=== PATIENT | female | born 1995 | race African-American/Black ===

== ENCOUNTER 2020-10-19 08:37 | Emergency (ER) | payer BC ==
[2020-10-19] MEDS ORDERED: Sodium Chloride 0.9% 1,000 ML IV ONE (08:59)
[2020-10-19] MEDS ORDERED: Ondansetron 4 MG/2 ML SDV IVPUSH ONE (08:59)
--- NOTE | 2020-10-19 09:25 | EDM.PDOC ---
ED HPI GENERAL MEDICAL PROBLEM - General Chief Complaint: Gastrointestinal Problem Stated Complaint: 8 WEEKS PG/VOMITING Time Seen by Provider: 10/19/20 08:49 Source of Information: Reports: Patient History Limitations: Reports: No Limitations - History of Present Illness INITIAL COMMENTS - FREE TEXT/NARRATIVE: 25-year-old female presents the emergency department today with complaints of nausea and vomiting. The patient states that she is 8 weeks however she does not know the exact date her last menstrual period. She is a 3 para 1. States that her last resulted in a miscarriage due to group B strep. She is from [facility] so her OB is located there. She is just visiting and plans on returning this week. She states she has had some issues with nausea and vomiting during this however had been doing fairly well. She states she started having nausea and vomiting 2 days ago and has really not been able to keep much of anything down. States she takes sips of water and even that tends to come back up. She denies any fever, chills, abdominal pain or diarrhea. She denies any urinary symptoms, however she states she was being treated for UTI and was on antibiotics however she has not been able to keep those down over the past 2 days due to the nausea and vomiting. Patient states she is otherwise healthy. 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 ED EXAM, GI/ABD - Physical Exam Exam: See Below Exam Limited By: No Limitations General Appearance: Alert, WD/WN, No Apparent Distress Ears: Normal External Exam, Hearing Grossly Normal Nose: Normal Inspection Throat/Mouth: Normal Inspection, Normal Lips, Normal Voice, No Airway Compromise Head: Atraumatic, Normocephalic Neck: Normal Inspection Respiratory/Chest: No Respiratory Distress, Lungs Clear, Normal Breath Sounds, No Accessory Muscle Use, Chest Non-Tender Cardiovascular: Normal Peripheral Pulses, Regular Rate, Rhythm, No Murmur GI/Abdominal Exam: Normal Bowel Sounds, Soft, Non-Tender, No Distention (Female) Exam: Deferred Rectal (Female) Exam: Deferred Back Exam: Normal Inspection Extremities: Normal Inspection, Normal Range of Motion Neurological: Alert, Oriented, Normal Cognition Psychiatric: Normal Affect, Normal Mood Skin Exam: Warm, Dry, Intact, Normal Color, No Rash Lymphatic: No Adenopathy Course - Vital Signs Text/Narrative:: 25-year-old female who is 8 weeks . Complains of nausea and vomiting that started 2 days ago. States she has not even been able to keep sips of water down. Denying any fever, chills, diarrhea, or urinary tract symptoms. Denies abdominal pain. States she was being treated for UTI however has not been able to keep her antibiotics down for the last couple of days. I have ordered labs, urinalysis, a liter of normal saline as she is likely dehydrated and Zofran. Last Recorded V/S: Last Vital Signs Temp 96.6 F L 10/19/20 08:45 Pulse 110 H 10/19/20 08:45 Resp 17 10/19/20 08:45 BP 136/59 L 10/19/20 08:45 Pulse Ox 99 10/19/20 08:45 - Orders/Labs/Meds Orders: Active Orders 24 hr Category Date Time Status UA W/MICROSCOPIC [URIN] Stat Lab 10/19/20 10:12 Results Labs: Laboratory Tests 10/19/20 10/19/20 10/19/20 Range/Units 09:05 09:05 10:12 WBC 8.27 (3.98-10.04) K/mm3 RBC 4.74 (3.98-5.22) M/mm3 Hgb 14.0 (11.2-15.7) gm/dl Hct 42.1 (34.1-44.9) % MCV 88.8 (79.4-94.8) fl MCH 29.5 (25.6-32.2) pg MCHC 33.3 (32.2-35.5) g/dl RDW Std Deviation 43.0 (36.4-46.3) fL Plt Count 307 (182-369) K/mm3 MPV 10.3 (9.4-12.3) fl Neut % (Auto) 58.3 (34.0-71.1) % Lymph % (Auto) 28.1 (19.3-51.7) % [place] % (Auto) 11.1 (4.7-12.5) % Eos % (Auto) 1.9 (0.7-5.8) Baso % (Auto) 0.2 (0.1-1.2) % Neut # (Auto) 4.82 (1.56-6.13) K/mm3 Lymph # (Auto) 2.32 (1.18-3.74) K/mm3 [place] # (Auto) 0.92 H (0.24-0.36) K/mm3 Eos # (Auto) 0.16 (0.04-0.36) K/mm3 Baso # (Auto) 0.02 (0.01-0.08) K/mm3 Sodium 137 (136-145) mEq/L Potassium 3.5 (3.5-5.1) mEq/L Chloride 103 (98-107) mEq/L Carbon Dioxide 22 (21-32) mEq/L Anion Gap 15.5 H (5-15) BUN 14 (7-18) mg/dL Creatinine 0.6 (0.55-1.02) mg/dL Est Cr Clr Drug Dosing 127.85 mL/min Estimated GFR (MDRD) > 60 (>60) mL/min BUN/Creatinine Ratio 23.3 H (14-18) Glucose 109 H (74-106) mg/dL Calcium 8.3 L (8.5-10.1) mg/dL Magnesium 1.7 L (1.8-2.4) mg/dl Total Bilirubin 0.7 (0.2-1.0) mg/dL AST 12 L (15-37) U/L ALT 25 (14-59) U/L Alkaline Phosphatase 48 (46-116) U/L Total Protein 7.0 (6.4-8.2) g/dl Albumin 3.2 L (3.4-5.0) g/dl Globulin 3.8 gm/dL Albumin/Globulin Ratio 0.8 L (1-2) Urine Color Yellow (Yellow) Urine Appearance Clear (Clear) Urine pH 6.0 (5.0-8.0) Ur Specific [place] > or = 1.030 (1.005-1.030) Urine Protein Trace H (Negative) Urine Glucose (UA) Negative (Negative) Urine Ketones 4+ H (Negative) Urine Occult Blood Negative (Negative) Urine Nitrite Negative (Negative) Urine Bilirubin Negative (Negative) Urine Urobilinogen 0.2 (0.2-1.0) Ur Leukocyte Esterase Negative (Negative) Urine RBC Not seen (0-5) /hpf Urine WBC 0-5 (0-5) /hpf Ur Epithelial Cells 0-5 (0-5) /hpf Urine Mucus Moderate H (FEW) /hpf Meds: Medications Discontinued Medications Generic Name Dose Route Start Last Admin Trade Name Nanda PRN Reason Stop Dose Admin Sodium Chloride 1,000 mls @ 999 mls/hr 10/19/20 08:59 10/19/20 09:07 Normal Saline IV 10/19/20 09:59 999 mls/hr ONETIME ONE Administration Ondansetron HCl 4 mg 10/19/20 08:59 10/19/20 09:08 Ondansetron 4 Mg/2 Ml Sdv IVPUSH 10/19/20 09:00 4 mg ONETIME ONE Administration - Re-Assessments/Exams Free Text/Narrative Re-Assessment/Exam: 10/19/20 10:22 Hematology is essentially unremarkable, chemistry reveals a sodium of 137, potassium 3.5, carbon dioxide 22, anion gap 15.5, BUN 14, creatinine 0.6, glucose 109, calcium 8.3, magnesium 1.7, AST 12, ALT 25, albumin 3.2, Urinalysis is pending. The patient reports feeling slightly less nauseous after administration of Zofran. 10/19/20 10:47 Urinalysis shows a trace of protein, 4+ ketones, nitrite negative, urine leuk esterase negative Pt will be discharged to home Departure - Departure Time of Disposition: 10:47 Disposition: Home, Self-Care 01 Condition: Good Clinical Impression: Nausea and vomiting during prior to 22 weeks gestation - Discharge Information Prescriptions: Ondansetron [Zofran ODT] 4 mg PO Q6H PRN #12 tab.dis PRN Reason: Nausea/Vomiting Referrals: PCP,Not In Area [Primary Care Provider] - Forms: ED Department Discharge Additional Instructions: You were seen in the emergency department today with complaints of nausea and vomiting at 8 weeks of . Labs were completed as well as a urinalysis and these were all essentially unremarkable. You were given 1 L of IV fluids and Zofran medication to treat nausea. This did seem to help. I have sent a prescription to your pharmacy for Zofran oral dissolving tablet. You can take 1 tablet every 6 hours as needed for nausea. Allow the tablet to fully dissolve under your tongue. Wait approximately 30 minutes after taking the tablet prior to eating or drinking. You may also resume taking your antibiotics as pr eviously prescribed. Should your condition worsen or change, do not hesitate returning to the emergency department. Sepsis Event Note (ED) - Evaluation Sepsis Screening Result: No Definite Risk - Focused Exam Vital Signs: Vital Signs Temp Pulse Resp BP Pulse Ox 10/19/20 08:45 96.6 F L 110 H 17 136/59 L 99 - My Orders Last 24 Hours: My Active Orders 10/19/20 10:12 UA W/MICROSCOPIC [URIN] Stat - Assessment/Plan Last 24 Hours: My Active Orders 10/19/20 10:12 UA W/MICROSCOPIC [URIN] Stat
== END 2020-10-19 10:56 | disposition home or self-care (01) ==
LOC: JD.ED 08:37
DX: O21.9 Vomiting of pregnancy, unspecified (principal); Z3A.08 8 weeks gestation of pregnancy
CPT/HCPCS: 36415; 80053; 81001; 83735; 85025; 96374; 99284; J2405; J7030; 99283